=== PATIENT | male | born 1965 | race Caucasian/White ===

== ENCOUNTER 2017-02-18 14:40 | Emergency (ER) | payer BC, OTHER ==
[~2017-02-18] VITALS: Ht 172.7 cm; Wt 113.6 kg
[2017-02-18] MEDS ORDERED: LISI-538 (14:51)
[2017-02-18] MEDS ORDERED: LOVA40TA (14:51)
[2017-02-18] MEDS ORDERED: NORCOTAB PO (15:55)
[2017-02-18 16:12] VITALS: BP 120/66
[2017-02-18] MEDS ORDERED: ROLLMIS2 XX (16:23)
--- NOTE | 2017-02-18 23:00 | REP ---
LEFT ANKLE SERIES: Four views of the left ankle are performed. There is an oblique fracture of the distal fibula with minimal posterolateral displacement. The medial aspect of the ankle mortise is slightly widened. There is no other evidence of acute fracture or dislocation. Signed by Brigido Keys MD 02/19/2017 08:33 P
== END 2017-02-18 16:30 | disposition home or self-care (01) ==
LOC: M ED 14:40
DX: S82.392A Other fracture of lower end of left tibia, initial encounter for closed fracture (principal); W00.0XXA Fall on same level due to ice and snow, initial encounter; Y92.89 Other specified places as the place of occurrence of the external cause; Y93.01 Activity, walking, marching and hiking; Y99.0 Civilian activity done for income or pay

== ENCOUNTER → 2017-02-24 | Outpatient (CLI) | payer OTHER ==
[~2017-02-24] MED LIST: LISI-538; LOVA40TA; NORCOTAB PO; ROLLMIS2 XX
--- NOTE | 2017-02-24 21:30 | ECGEPIP ---
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
== END ==
LOC: M EKG 10:28
PROVIDERS: ATTEND Physician Assistant
DX: Z01.810 Encounter for preprocedural cardiovascular examination (principal); I10 Essential (primary) hypertension; E78.00 Pure hypercholesterolemia, unspecified

== ENCOUNTER 2018-08-10 07:11 | Observation (INO) | payer BC, OTHER ==
[~2018-08-10] VITALS: Ht 172.7 cm; Wt 91.4 kg
[~2018-08-10 07:11] MED LIST changes: +HYDR-3715 PO; -LISI-538; +LISI-538 PO; -LOVA40TA; +LOVA40TA PO; -NORCOTAB PO
[2018-08-10] MEDS ORDERED: ATROPINE SULF 0.4 MG/ML 1ML VIAL (J0461) IV STA (07:26)
[2018-08-10] MEDS ORDERED: NS 1,000 ML IV ONE (07:30)
[2018-08-10] MEDS ORDERED: ADACEL/BOOSTRIX VACCINE (DIPHTH/PERTUSS/ACELL/TETANUS)0.5ML SYR (90715) IM ONE (07:30)
[2018-08-10 07:43] LABS: BASO % 0.3 % (0.0-1.0); EOS # 0.1 10^3/uL (0.0-0.50); HEMATOCRIT 39.4 % (42.0-52.0); LYMPH # 1.1 10^3/uL (1.5-4.5); LYMPH % 18.6 % (24.0-44.0); MONO # 0.5 10^3/uL (0.0-0.8); MONO % 7.5 % (0.0-5.0); NEUTROPHILS # 4.3 10^3/uL (1.8-7.7); NEUTROPHILS % 71.3 % (36.0-66.0); PLATELET COUNT, AUTOMATED 162 10^3/uL (150-450); RED BLOOD COUNT 4.33 10^6/uL (4.30-6.10)
[2018-08-10 07:53] LABS: INR 1.01; PROTHROMBIN TIME 13.4 SECONDS (12.1-14.4)
[2018-08-10 07:54] LABS: PARTIAL THROMBOPLASTIN TIME 26.9 SECONDS (25.4-37.6)
[2018-08-10 08:20] LABS: ALBUMIN 3.2 GM/DL (3.2-5.2); ALT/SGPT 33 U/L (12-78); BILIRUBIN,DIRECT < 0.1 MG/DL (0.0-0.2); BILIRUBIN,TOTAL 0.3 MG/DL (0.2-1.0); BLOOD UREA NITROGEN 22 MG/DL (7-18); CALCIUM LEVEL 7.8 MG/DL (8.5-10.1); CARBON DIOXIDE LEVEL 25 MEQ/L (21-32); CHLORIDE LEVEL 111 MEQ/L (98-107); CK-MB VALUE MASS < 1.0 NG/ML (<3.6); CPK CREATINE PHOSPHOKINASE 119 U/L (39-308); CREATININE FOR GFR 1.04 MG/DL (0.70-1.30); FREE T4 0.99 NG/DL (0.76-1.46); GLOMERULAR FILTRATION RATE > 60.0 (>56); GLUCOSE, FASTING 157 MG/DL (70-100); MAGNESIUM LEVEL 2.1 MG/DL (1.8-2.4); MB/CK RELATIVE INDEX 0.84 (< OR =4); POTASSIUM SERUM 4.3 MEQ/L (3.5-5.1); SODIUM LEVEL 142 MEQ/L (136-145); TOTAL PROTEIN 5.8 GM/DL (6.4-8.2); TROPONIN I < 0.02 NG/ML (< 0.10)
--- NOTE | 2018-08-10 08:39 | REP ---
CT Head without contrast HISTORY: Syncope COMPARISON: None There is no intraparenchymal hemorrhage, acute infarct, mass or midline shift. The ventricular system is normal in appearance. There is no extra cerebral collection. There is no fracture. Mucosal thickening is present in the right ethmoid sinus. IMPRESSION: There is no intracranial lesion. Electronically Signed by Mikey Phillips MD 08/10/2018 08:30 A
--- NOTE | 2018-08-10 08:39 | REP ---
CHEST: Two views. There is no evidence of acute infiltrate. No pleural effusion is seen. The heart is normal in size. The mediastinal silhouette is unremarkable. The visualized osseous structures are intact. IMPRESSION: No acute pulmonary disease. Electronically Signed by Brigido Keys MD 08/10/2018 12:44 P
[2018-08-10] MEDS ORDERED: ACETAMINOPHEN TAB 650MG DOSE (2X325MG) PO PRN (11:00)
[2018-08-10] MEDS ORDERED: MOM 30ML SUSPENSION UDC PO PRN (11:00)
[2018-08-10] MEDS ORDERED: MAALOX 30 ML SUSP *UDC PO PRN (11:00)
--- NOTE | 2018-08-10 11:17 | HPEPDOC ---
General Date of Admission 08/10/2018 Date of Service: Aug 10, 2018 Attending Physician: PB DEVINE MD Chief Complaint The patient is a 53-year-old male admitted with a reason for visit of Syncope. Source: Patient, Family Exam Limitations: No limitations Timing/Duration: Momentarily Severity: Mild Associated Symptoms: Other (LOC) History of Present Illness 53 years old white male with past medical history of prediabetes, hypertension, hyperlipidemia, has been feeling dizzy when he stands up from sitting or lying position since last 2-3 days. Today, while he went to have his alarm clock of he passed out and fell with LOC for a few seconds. Denies any aura or association with nausea, vomiting, headache, etc. . No chest pain, no shortness of breath. No weakness of upper or lower extremity Patient has been trying to lose weight intentionally and has lost about 50 pounds in last 2-3 months Home Medications Scheduled Lisinopril (Lisinopril) 20 Mg Tab, 20 MG PO QHS, (Reported) Lovastatin (Lovastatin) 40 Mg Tab, 40 MG PO QHS, (Reported) Allergies Coded Allergies: No Known Allergies (Unverified , 02/18/17) Past Medical History Medical History Hypertension, prediabetes, hyperlipidemia Surgical History Left ankle surgery Family History Significant Family History: No pertinent family hx Social History * Smoker: quit greater than 1 year Alcohol: Denies Drugs: denies Psychosocial History: No pertinent psych hx A-FIB/CHADSVASC A-FIB History Current/History of A-Fib/PAF?: No Review of Systems Constitutional: Denies: Chills, Fever, Malaise, Night Sweats, Weakness, Fatigue, Weight Loss, Lethargy, Other Eyes: Denies: Pain, Vision change, Conjunctivae inflammation, Eyelid inflammation, Redness, Other ENT: Denies: Head Aches, Ear Pain, Dysphagia, Sinus Congestion, Post Nasal Drip, Sore Throat, Epistaxis, Other Symptoms Skin: Denies: Rash, Lesions, Jaundice, Bruising, Itching, Dry, Breakdown, Nail Changes, Other Pulmonary: Denies: Dyspnea, Cough, Pleuritic Chest Pain, Other Symptoms Cardiovascular: Denies: Chest Pain, Palpitations, Orthopnea, Paroxysmal Noc. Dyspnea, Edema, Lt Headedness, Other Symptoms Gastrointestinal: Denies: Nausea, Vomiting, Abdominal Pain, Diarrhea, Constipation, Melena, Hematochezia, Other Symptoms Genitourinary: Denies: Dysuria, Frequency, Incontinence, Hematuria, Retention, Other Symptoms Hematologic: Denies: Bruising, Bleeding Excessively, Petecchia, Purpura, Enlarged Lymph Nodes, Other Hematologic Endocrine: Denies: Polydipsia, Polyphagia, Polyuria, Heat Intolerance, Cold Intolerance, Other Endocrine Sx Musculoskeletal: Denies: Neck Pain, Back Pain, Shoulder Pain, Arm Pain, Hand Pain, Leg Pain, Foot Pain, Joint Pain, Muscle Pain, Spasms, Other Symptoms Neurological: Reports: Other Symptoms (syncope ) Psych: Denies: Mood Normal, Anxiety, Depression, Memory Issues, Thoughts of Self Harm, Anger, Thoughts of Harming Other, Other Psych Physical Examination General Exam: Positive: Alert, Cooperative Eye Exam: Positive: PERRLA, Conjunctiva & lids normal ENT Exam: Positive: Atraumatic, Mucous membr. moist/pink Neck Exam: Positive: Supple Chest Exam: Positive: Clear to auscultation Heart Exam: Positive: Rate Normal, Normal S1, Normal S2 Abdomen Exam: Positive: Normal bowel sounds, Soft, Hepatospenomegaly Extremity Exam: Positive: Normal pulses Skin Exam: Positive: Nl turgor and temperature Neuro Exam: Positive: Normal Gait, Normal Speech, Reflexes 2+ Psych Exam: Positive: Mental status NL, Mood NL, Oriented x 3 Vital Signs Vital Signs Date Time Temp Pulse Resp B/P (MAP) Pulse Ox O2 Delivery O2 Flow Rate FiO2 08/10/18 09:31 50 92/50 (64) 100 08/10/18 07:57 96.0 08/10/18 07:18 15 Room Air Laboratory Data Labs 24H Laboratory Tests 2 08/10/18 07:27: Immature Granulocyte % (Auto) 0.3, White Blood Count 6.0, Red Blood Count 4.33, Hemoglobin 13.0L, Hematocrit 39.4L, Mean Corpuscular Volume 91.0, Mean Corpuscular Hemoglobin 30.0, Mean Corpuscular Hemoglobin Concent 33.0, Red Cell Distribution Width 14.0, Platelet Count 162, Neutrophils (%) (Auto) 71.3H, L ymphocytes (%) (Auto) 18.6L, Monocytes (%) (Auto) 7.5H, Eosinophils (%) (Auto) 2.0, Basophils (%) (Auto) 0.3, Neutrophils # (Auto) 4.3, Lymphocytes # (Auto) 1.1L, Monocytes # (Auto) 0.5, Eosinophils # (Auto) 0.1, Basophils # (Auto) 0.0, Nucleated Red Blood Cells % (auto) 0.0, Prothrombin Time 13.4, Prothromb Time International Ratio 1.01, Activated Partial Thromboplast Time 26.9, Anion Gap 6L, Glomerular Filtration Rate > 60.0, Lactic Acid Level 2.0, Calcium Level 7.8L, Magnesium Level 2.1, Aspartate Amino Transf (AST/SGOT) 23, Alanine Aminotransferase (ALT/SGPT) 33, Alkaline Phosphatase 47, Total Bilirubin 0.3, Direct Bilirubin < 0.1, Total Creatine Kinase 119, Creatine Kinase MB < 1.0, Cre atine Kinase MB Relative Index 0.84, Troponin I < 0.02, Total Protein 5.8L, Albumin 3.2, Albumin/Globulin Ratio 1.23, Thyroid Stimulating Hormone (TSH) 2.700, Free Thyroxine 0.99 CBC/BMP Laboratory Tests 08/10/18 07:27 Red Blood Count 4.33, Mean Corpuscular Volume 91.0, Mean Corpuscular Hemoglobin 30.0, Mean Corpuscular Hemoglobin Concent 33.0, Red Cell Distribution Width 14. 0, Neutrophils (%) (Auto) 71.3 H, Lymphocytes (%) (Auto) 18.6 L, Monocytes (%) (Auto) 7.5 H, Eosinophils (%) (Auto) 2.0, Basophils (%) (Auto) 0.3, Neutrophils # (Auto) 4.3, Lymphocytes # (Auto) 1.1 L, Monocytes # (Auto) 0.5, Eosinophils # (Auto) 0.1, Basophils # (Auto) 0.0 Microbiology Microbiology 08/10/18 Blood Culture, Received Pending 08/10/18 Blood Culture, Received Pending Problems (1) Syncope Status: Acute Problem Text: 3 years old white male with past medical history of prediabetes, hypertension, hyperlipidemia. With recent intentional weight loss of 50 pounds, has been taking antihypertensive meds. Patient has been feeling dizzy when he stands up and the signs, symptoms of orthostatic hypotension , Most likely causes significant weight loss and the taking his antihypertensive meds at the same dosage as he would've taken previously. His weight loss Will DC antihypertensive meds and also observe patient in PCU Admitted to PCU Normal saline at 100 mL per hour Hold Cam inhibitors Orthostatic pressure measurement Carbohydrate consistent diet Out of bed as tolerated A.m. level work Possible discharge in a.m. Plan / VTE VTE Prophylaxis Ordered?: Yes PB DEVINE MD Aug 10, 2018 11:17
[2018-08-10] MEDS: NS 1,000 ML IV SCH ×2 (12:30→23:37)
[2018-08-10 14:00] VITALS: BP_SYST 104; BP_SYST 105; BP_DIAS 56; BP_DIAS 61; BP_DIAS 62
[2018-08-10 14:35] LABS: MEAN CORPUSCULAR HEMOGLOBIN 29.3 pg (27.0-33.0); MEAN CORPUSCULAR HGB CONC 33.3 g/dl (32.0-36.5); MEAN CORPUSCULAR VOLUME 87.8 fl (80.0-96.0); PLATELET COUNT, AUTOMATED 186 10^3/uL (150-450); RED BLOOD COUNT 4.44 10^6/uL (4.30-6.10)
[2018-08-10 14:52] LABS: ALBUMIN 3.3 GM/DL (3.2-5.2); ALT/SGPT 33 U/L (12-78); BILIRUBIN,TOTAL 0.3 MG/DL (0.2-1.0); BLOOD UREA NITROGEN 17 MG/DL (7-18); CALCIUM LEVEL 8.2 MG/DL (8.5-10.1); CARBON DIOXIDE LEVEL 27 MEQ/L (21-32); CHLORIDE LEVEL 110 MEQ/L (98-107); CREATININE FOR GFR 0.86 MG/DL (0.70-1.30); GLOMERULAR FILTRATION RATE > 60.0 (>56); GLUCOSE, FASTING 121 MG/DL (70-100); POTASSIUM SERUM 4.4 MEQ/L (3.5-5.1); SODIUM LEVEL 141 MEQ/L (136-145)
[2018-08-10 16:00] VITALS: BP_SYST 100; BP_SYST 105; BP_SYST 107; BP_DIAS 52; BP_DIAS 54; BP_DIAS 55
[2018-08-10 20:00] VITALS: BP 107/51
[2018-08-10] MEDS: DOCUSATE SODIUM 100 MG CAP PO SCH (20:30)
[2018-08-10 20:40] VITALS: BP_SYST 93; BP_SYST 96; BP_SYST 97; BP_DIAS 50; BP_DIAS 52; BP_DIAS 53
[2018-08-10 23:59] VITALS: BP 95/50
[2018-08-11 00:49] VITALS: BP_SYST 100; BP_SYST 98; BP_SYST 99; BP_DIAS 54; BP_DIAS 55; BP_DIAS 59
[2018-08-11 04:00] VITALS: BP_SYST 86; BP_SYST 94; BP_SYST 96; BP_SYST 98; BP_DIAS 46; BP_DIAS 56; BP_DIAS 58; BP_DIAS 60
[2018-08-11 08:00] VITALS: BP_SYST 101; BP_SYST 103; BP_SYST 91; BP_DIAS 55; BP_DIAS 58
[2018-08-11] MEDS: DOCUSATE SODIUM 100 MG CAP PO SCH (08:38)
[2018-08-11] MEDS ORDERED: ENOXAPARIN 40 MG/0.4 ML SYRINGE (J1650) SC SCH (09:00)
--- NOTE | 2018-08-11 13:26 | DS.PDOC ---
Discharge Summary General Date of Admission Aug 10, 2018 at 10:52 Date of Discharge 08/11/2018 Attending Physician: PB DEVINE MD Discharge Summary PROCEDURES PERFORMED DURING STAY: [None]. ADMITTING DIAGNOSES: 1. [Syncope]. DISCHARGE DIAGNOSES: 1. [Syncope]. COMPLICATIONS/CHIEF COMPLAINT: Syncope. HISTORY OF PRESENT ILLNESS: [53 years old white male with past medical history of prediabetes, hypertension, hyperlipidemia, has been feeling dizzy when he stands up from sitting or lying position since last 2-3 days. Today, while he went to have his alarm clock of he passed out and fell with LOC for a few seconds. Denies any aura or association with nausea, vomiting, headache, etc. . No chest pain, no shortness of breath. No weakness of upper or lower extremity Patient has been trying to lose weight intentionally and has lost about 50 pounds in last 2-3 months]. HOSPITAL COURSE: [Patient was admitted with syncope, most likely secondary to hospital. Hypotension secondary to medication adverse effect, she was monitored on telemetry without any problems or arrhythmias. Patient remained asymptomatic. He's been advised to stop taking kenna inhibitors or any other antihypertensive meds as he has lost a lot of weight over a few months. Patient will follow with the PCP in one week for further care]. DISCHARGE MEDICATIONS: Please see below. ALLERGIES: Please see below. PHYSICAL EXAMINATION ON DISCHARGE: VITAL SIGNS: Please see below. GENERAL: [Within normal limits] HEENT: [PERRLA] NECK: [Supple] CARDIOVASCULAR EXAMINATION: [S1, S2, regular] RESPIRATORY EXAMINATION: [Clear to A&P] ABDOMINAL EXAMINATION: [Benign] EXTREMITIES: [No clubbing, cyanosis, edema] SKIN: [The normal limit] NEUROLOGICAL EXAMINATION: [. No focal motor sensory deficit] PSYCHIATRIC EXAMINATION: [Within normal limits] LABORATORY DATA: Please see below. IMAGING: [Normal] PROGNOSIS: ACTIVITY: [As tolerated]. DIET: [As tolerated] DISCHARGE PLAN: [Discharged home] DISPOSITION: 01 Home, Self-Care. DISCHARGE INSTRUCTIONS: 1. [As above]. ITEMS TO FOLLOWUP ON ON OUTPATIENT: 1. [As above. DISCHARGE CONDITION: [Stable]. TIME SPENT ON DISCHARGE: He 35 minutes. Vital Signs/I&Os Vital Signs Date Time Temp Pulse Resp B/P (MAP) Pulse Ox O2 Delivery O2 Flow Rate FiO2 08/11/18 08:00 73 101/58 (72) 69 91/55 (67) 80 103/55 (71) 08/11/18 08:00 98.8 18 96 08/10/18 07:18 Room Air I&O- Last 24 Hours up to 6 AM 08/11/18 05:59 Intake Total 2800 ml Output Total 1930 ml Balance 870 ml Laboratory Data Labs 24H Laboratory Tests 2 08/10/18 14:16: Nucleated Red Blood Cells % (auto) 0.0, Anion Gap 4L, Glomerular Filtration Rate > 60.0, Blood Urea Nitrogen 17, Creatinine 0.86, Sodium Level 141, Potassium Level 4.4, Chloride Level 110H, Carbon Dioxide Level 27, Calcium Level 8.2L, Aspartate Amino Transf (AST/SGOT) 13, Alanine Aminotransferase (ALT/SGPT) 33, Alkaline Phosphatase 51, Total Bilirubin 0.3, Total Protein 6.0L, Albumin 3.3, Albumin/Globulin Ratio 1.22 CBC/BMP Laboratory Tests 08/10/18 14:16 Red Blood Count 4.44, Mean Corpuscular Volume 87.8, Mean Corpuscular Hemoglobin 29.3, Mean Corpuscular Hemoglobin Concent 33.3, Red Cell Distribution Width 14.1, Calcium Level 8.2 L, Aspartate Amino Transf (AST/SGOT) 13, Alanine Aminotransferase (ALT/SGPT) 33, Alkaline Phosphatase 51, Total Bilirubin 0.3, Total Protein 6.0 L, Albumin 3.3 Microbiology Microbiology 08/10/18 Blood Culture - Preliminary, Resulted No growth after 24 hours . All specim... 08/10/18 Blood Culture - Preliminary, Resulted No growth after 24 hours . All specim... Discharge Medications Scheduled Lovastatin (Lovastatin) 40 Mg Tab, 40 MG PO QHS, (Reported) Allergies Coded Allergies: No Known Allergies (Unverified , 02/18/17) PB DEVINE MD Aug 11, 2018 13:25
--- NOTE | 2018-08-11 16:05 | ECGEPIP ---
[facility] - ED Test Date: 2018-08-10 Pat Name: DANIELLE SPIVEY Department: Room: - Gender: Male [employer]: PMO : 1965 Requested By: YVETTE Mark Order Number: [id number] Reading MD: Diana Fernandes Measurements Intervals [place] Rate: 50 P: 24 NV: 121 QRS: 13 QRSD: 102 T: 11 QT: 446 QTc: 408 Interpretive Statements SINUS BRADYCARDIA PROLONGED QTC NSTTW abnormalities Electronically Signed on 08-11-2018 16:05:32 EDT by Diana Fernandes
== END 2018-08-11 12:20 | disposition home or self-care (01) ==
LOC: EDBD 07:11 → M ED 07:11 → M ED INP 10:52 → M PCU 14:00
PROVIDERS: ADMIT Internal Medicine; ATTEND Internal Medicine
DX: R55 Syncope and collapse (principal); R73.03 Prediabetes; I10 Essential (primary) hypertension; E78.49 Other hyperlipidemia; Z79.899 Other long term (current) drug therapy; Z87.891 Personal history of nicotine dependence
CPT/HCPCS: 36415; 70450; 71046; 80053; 82550; 82553; 83605; 83735; 84439; 84443; 84484; 85025; 85027; 85610; 85730; 87040; 90471; 90715; 93005; 93041; 94760; 96361; 96374; 96375; 99285; J0461